=== PATIENT | male | born 1990 | race Caucasian/White ===

== ENCOUNTER 2024-06-24 12:21 | Emergency (ER) | payer OTHER, SELFPAY ==
[2024-06-24 12:24] VITALS: BP 173/112
[2024-06-24 13:15] VITALS: BMI 41.5
[2024-06-24] MEDS: NSS 1000 IV (13:21)
[2024-06-24 13:31] LABS: % Basophils 0.2 % (0-2); % Eosinophils 0.7 % (0-6); % Immature Granulocytes 0.3 % (0-0.5); % Lymphocytes 29.7 % (20.5-51.1); % Monocytes 8.2 % (1.7-9.3); % Neutrophils 60.9 % (42.2-75.2); Absolute Eosinophils 0.1 10^3/uL (0-0.7); Absolute Monocytes 0.8 10^3/uL (0.1-0.6); Absolute Neutrophils 6.2 10^3/uL (1.4-6.5); Hematocrit 38.6 % (39.0-52.0); Mean Corp Hgb Conc. 33.7 g/dL (33.0-37.0); Mean Corpuscular Hgb 27.9 pg (27.0-31.0); Mean Corpuscular Volume 82.8 fL (80.0-94.0); Mean Platelet Volume 9.8 fL (7.4-10.4); Nucleated Red Blood Cells % 0 % (-); Platelet Count 225 10^3/uL (130-400); Red Blood Cell Count 4.66 10^6/uL (4.70-6.10); Red Cell Dist. Width 12.8 % (11.5-14.5); White Blood Cell Count 10.2 10^3/uL (4.8-10.8)
[2024-06-24 13:37] VITALS: BP 149/104
[2024-06-24 13:55] LABS: ALT (SGPT) 33 U/L (0-50); AST (SGOT) 20 U/L (17-59); Albumin 4.2 g/dl (3.5-5.0); Alkaline Phosphatase 61 U/L (38-126); Blood Urea Nitrogen 21 mg/dl (9-20); Calcium 9.3 mg/dl (8.4-10.2); Carbon Dioxide 30 mmol/L (22-30); Chloride 102 mmol/L (98-107); Estimated Creatinine Clearance > 125 ml/min; Glucose 91 mg/dl (70-99); Potassium 4.3 mmol/L (3.5-5.1); Sodium 140 mmol/L (135-145); Total Bilirubin 0.5 mg/dl (0.2-1.3); Total Protein 6.4 g/dl (6.3-8.2); eGFR > 60.00
[2024-06-24 14:00] VITALS: BP 135/104
--- NOTE | 2024-06-24 14:09 | ED.GENMED ---
History of Present Illness
General
Chief Complaint: Blood Pressure Problem
Source: patient and spouse
Exam Limitations: none
Time Seen by Provider: 06/24/24 12:40
Nursing documentation reviewed up to this point in time: agreed with
History of Present Illness
History of Present Illness:
34 yo male here for high blood pressure he feels is related to his persistent pain first on the right side of his face, neck, ear 4 weeks ago then a week ago, 'flipped' to the left side ear, neck jaw where he gets frequent episodes of 'burning,
throbbing pains' lasting a few to 15 minutes every 15 minutes throughout the day. Also pain in the back of his head, the muscles on both sides of his neck posteriorly have felt 'tight'
Has seen PCP who referred him to ENT who did US and told him it was muscular and gave Prednisone taper and Flexeril and told if these don't work he would consider Botox. Pt states these help w about 25% improvement. Pt is unhappy with his care as he
feels 'nobody it doing anything' and 'no one did any blood work.'
at bedside states He does get blood work 'frequently' as he is on Ozempic for past year and a half. Last labs 04/29/24 and 11/2023 prior to that with nothing abnormal.
He states he's read on [employer] that people on Ozempic have 'all kinds of neck pains and swelling' and I've been told (by PCP) to not stop the Ozempic.
also states pt's mom diagnosed with 'lymphoma' and he is concerned for that (Mom is still alive).
States 'my blood pressure was well controlled until all this started.'
Past History
Past History
ED Past Medical History: Other (avscular necrosis of left distal tibia)
ED Past Surgical History: None
Social History
Tobacco: Non-smoker
Review of Systems
Review of Systems
Allergies reviewed?: Yes
All Other Systems: ROS reviewed and negative except as documented in HPI and ROS
Constitutional: Denies fever, fatigue or chills
EENT: Reports other (pain left side throat, under chin, left ear, left jaw); Denies sore throat, mouth pain or mouth swelling
Respiratory: Denies trouble breathing
Cardiac: Denies chest pain
ABD/GI: Denies abdominal pain or nausea
Musculoskeletal: Reports neck pain (left side neck soft tissue w intermittent throbbing, burning pain); Denies edema or back pain
Skin: Reports no symptoms
Neurological: Reports no symptoms
Phy Exam
Physical Exam
Physical Exam:
GENERAL: No acute distress. A&Ox3.
CONSTITUTIONAL: Afebrile.
EYES: PERRL, conjunctivae normal
Neck: Supple, no palpable masses or nodes. No tenderness.
ENMT: moist, normal appearing mucus membranes, Pharynx nl, TMs normal.
RESPIRATORY: Regular respirations, nonlabored, lungs clear.
CARDIOVASCULAR: Regular rate and rhythm, no murmurs, no rubs.
GI: Soft, nontender, normal BS
MUSCULOSKELETAL: Moves with ease. Well perfused.
SKIN: Warm, dry, pink
PSYCH: Normal mood and affect. Well kept, interactive and appropriate
NEUROLOGIC: Awake, alert and oriented. No focal neurological deficits
Course
Orders/Labs/Results
Orders:
Orders
06/24/24 13:07
CT Neck With Iv Contrast Urgent
Comment:
Reason For Exam: pain, pressure, L neck, ear, uncer chin
06/24/24 13:12
0.9% Sodium Chloride 1000 ml [Nss] 1,000 ml IV BOLUS
06/24/24 13:20
Complete Blood Count/With Diff Urgent
Comprehensive Metabolic Panel Urgent
TSH Reflex To Free T4 Urgent
06/24/24 15:20
Rapid Strep Group A Urgent
JENNA Source: Throat/Pharynx
Specimen Description:
Date Specimen was Collected: 06/24/24
Time Specimen was Collected: 15:15
Throat Culture, Comprehensive Urgent
JENNA Source: Throat/Pharynx
Specimen Description:
Date Specimen was Collected: 06/24/24
Time Specimen was Collected: 15:15
Abnormal Lab Results
06/24/24
13:20
RBC 4.66 L 10^6/uL
(4.70-6.10)
Hct 38.6 L %
(39.0-52.0)
Absolute Monos (auto) 0.8 H 10^3/uL
(0.1-0.6)
BUN 21 H mg/dl
(9-20)
06/24/24 13:20
06/24/24 13:20
Vital Signs
Initial and Last Documented VS:
Initial Vital Signs
Temp Pulse BP Pulse Ox
97.2 F 76 173/112 98
06/24/24 12:24 06/24/24 12:24 06/24/24 12:24 06/24/24 12:24
Last Documented Vital Signs
Temp Pulse BP Pulse Ox
97.2 F 76 149/95 97
06/24/24 12:24 06/24/24 12:24 06/24/24 15:00 06/24/24 15:00
MDM/Problems Addressed
MDM/Problems Addressed:
34 yo male w h/o HTN, NIDDM, GERD, is here for high blood pressure he feels is related to his persistent pain first on the right side of his face, neck, ear 4 weeks ago then a week ago, 'flipped' to the left side ear, neck jaw where he gets frequent
episodes of 'burning, throbbing pains' lasting a few to 15 minutes every 15 minutes throughout the day. Also pain in the back of his head, the muscles on both sides of his neck posteriorly have felt 'tight'
Has seen PCP who referred him to ENT who did US and told him it was muscular and gave Prednisone taper and Flexeril and told if these don't work he would consider Botox. Pt states these help w about 25% improvement. Pt is unhappy with his care as he
feels 'nobody it doing anything' and 'no one did any blood work.'
Pt went to today
at bedside states He does get blood work every few months as he is on Ozempic for past year and a half.
He states he's read on [employer] that people on Ozempic have 'all kinds of neck pains and swelling' and I've been told (by PCP) to not stop the Ozempic.
also states pt's mom diagnosed with 'lymphoma' and he is concerned for that (Mom is still alive).
States 'my blood pressure was well controlled until all this started.'
2:00 p.m.
CBC normal
CMP normal
TSH normal
3:[address] neck w/wo IV contrast radiology report read: IMPRESSION:
1. 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
2. Mild right convex curvature of the lower cervical spine.
3. Mild kyphosis at C6/C7.
BP 146/95
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 Rapid strep and throat cx done for patient's peace of mind.
Reviewed results with pt and , all questions answered, referred to ortho for neck pain and pt states 'it's not that' and rubs hand up and down anterior and left side of neck 'it's here' indicating soft tissues.
Pt informed that the thyroid nodule is miniscule and he should discuss with his PCP if any f/u is indicated.
Pt has appointment with [facility] on 07/10.
Rapid strep neg
*Critical Care Note
Total Time (30-74mins, 75-104mins- exclusive of procedures): Not Applicable
ED Attending Note
-
Portions of this chart may have been created with voice recognition software.� Occasional wrong word or��sound alike� substitutions may have occurred due to the inherent limitations of voice recognition software.
Discharge Plan
Departure
Patient Disposition: Home (Routine Discharge)
Date of Disposition: 06/24/24
Time of Disposition: 15:05
Patient with high blood pressure during this ER visit?: Yes
Condition: Fair
Discharge Problem:
Neck pain, soft tissue neck pain
Instructions: Neck Pain ED
Prescriptions:
No Action
celecoxib 200 MG capsule
200 mg PO BID Qty: 30 0RF
prednisone 10 MG tablet
10 mg PO .TAPER Qty: 30 0RF
Rx Instructions:
Take 40mg daily x3days, 30mg daily x3days,
20mg daily x3days, 10mg daily x3days.
Referrals:
Lavon Llanes CRNP [Family Provider] -
Wilton Sofia MD [Active] - Next open appointment
Activity Restrictions/Additional Instructions:
As we discussed, nothing in your workup here today to explain your symptoms.
You do have some degenerative changes in your cervical spine which may be causing some of your neck pain. I have given you the name of an orthopedic doctor to follow-up with for this.
Keep your appointment with the ENT doctor later this month. Take copies of all tests with you.
Continue the Flexeril and steroid as it is giving you some relief.
Interventions
Interventions:
*Risk Screen - Suicide Last Done: 06/24/24 12:22
*General Assessment Last Done: 06/24/24 12:27
*Neglect/Abuse Screening Last Done: 06/24/24 12:27
*ED COVID-19 Vaccine History Last Done: 06/24/24 13:15
*Nursing Disposition Last Done: 06/24/24 15:30
ED- Cardiac Assessment Last Done: 06/24/24 13:28
ED- Neurological Assessment Last Done: 06/24/24 13:28
ED- Pulmonary Assessment Last Done: 06/24/24 13:28
Discharge Date and Time
Discharge Date/Time: 06/24/24 15:31
Print Language: [place] K[place]
[2024-06-24 14:17] LABS: TSH Reflex To Free T4 2.02 uIU/ml (0.47-4.68)
[2024-06-24 15:00] VITALS: BP 149/95
== END 2024-06-24 15:31 | disposition home or self-care (01) ==
LOC: EMR 12:21
PROVIDERS: Registered Nurse; EMERGENCY PHYSICIAN Emergency Medicine; FAMILY PHYSICIAN Nurse Practitioner Family
DX: M54.2 Cervicalgia (principal); I10 Essential (primary) hypertension; K21.9 Gastro-esophageal reflux disease without esophagitis; E11.9 Type 2 diabetes mellitus without complications; Z11.52 Encounter for screening for COVID-19
CPT/HCPCS: 99285; 96360; 70491; 80053; 84443; 85025; 87070; 87880; Q9967

== ENCOUNTER → 2025-09-07 09:33 | Outpatient (REF) | payer OTHER, SELFPAY | LOC: RCS 09:33 | PROVIDERS: ATTENDING PHYSICIAN Internal Medicine Cardiovascular Disease; FAMILY PHYSICIAN Nurse Practitioner Family | DX: R06.00 Dyspnea, unspecified (principal); I45.10 Unspecified right bundle-branch block; R60.0 Localized edema; R07.89 Other chest pain | CPT/HCPCS: 93306 ==